=== PATIENT | male | born 1975 ===

== ENCOUNTER 2021-11-21 16:02 | Outpatient (CLI) | payer OTHER | END 2021-11-21 16:09 | disposition home or self-care (01) | LOC: RAD 16:02 | PROVIDERS: ATTEND Physical Medicine & Rehabilitation | DX: M75.52 Bursitis of left shoulder (principal) ==

== ENCOUNTER 2021-11-28 10:53 | Outpatient (CLI) | payer OTHER | END 2021-11-28 11:02 | disposition home or self-care (01) | LOC: SONOGRAMA 10:53 | PROVIDERS: ATTEND Physical Medicine & Rehabilitation | DX: M75.52 Bursitis of left shoulder (principal) ==

== ENCOUNTER 2021-12-19 10:13 | Outpatient (CLI) | payer OTHER | END 2021-12-19 10:21 | disposition home or self-care (01) | LOC: LAB 10:13 | DX: G47.33 Obstructive sleep apnea (adult) (pediatric) (principal); I10 Essential (primary) hypertension; E66.9 Obesity, unspecified; R05.9 Cough, unspecified ==